=== PATIENT | male | born 1960 | race Caucasian/White ===

== ENCOUNTER 2017-11-15 11:53 | Day surgery (SDC) | payer BC ==
[~2017-11-15 11:53] MED LIST: Propofol 200 MG/20 ML SDV ONE
[2017-11-15] MEDS ORDERED: Lactated Ringers 1,000 ML IV SCH (12:30)
[2017-11-15] MEDS ORDERED: Sodium Chloride 0.9% 5 ML Syringe FLUSH PRN (12:30)
[2017-11-15] MEDS ORDERED: Propofol 200 MG/20 ML SDV IV ONE (12:42)
--- NOTE | 2017-11-15 12:44 | PCM.PN ---
- General Info Date of Service: 11/15/17 - Review of Systems Systems Review Comment:: 57-year-old male with a family history of colon cancer in his mother comes for colonoscopy. His last colon exam was 5 years ago. He denies any recent change in bowel habits or rectal bleeding. He is medically stable to proceed today with no recent significant change in his health status. I have discussed the proposed colonoscopy with the patient. Risks such as but not limited to bleeding and GI injury reviewed. He appears to understand and agrees to proceed. - Patient Data Vitals - Most Recent: Last Vital Signs Temp 97.8 F 11/15/17 12:03 Pulse 66 11/15/17 12:03 Resp 18 11/15/17 12:03 BP 139/87 11/15/17 12:03 Pulse Ox 96 11/15/17 12:03 Weight - Most Recent: 92.986 kg Med Orders - Current: Current Medications Lactated Ringer's (Ringers, Lactated) 1,000 mls @ 50 mls/hr IV ASDIRECTED [facility] Last Admin: 11/15/17 12:35 Dose: 50 mls/hr Sodium Chloride (Syrex Flush) 5 ml FLUSH Q8HR PRN PRN Reason: Keep Vein Open Discontinued Medications Propofol (Diprivan 20 Ml) Confirm Administered Dose 400 mg .ROUTE .STK-MED ONE Stop: 11/15/17 11:40 - Problem List Review Problem List Initiated/Reviewed/Updated: Yes - My Orders Last 24 Hours: My Active Orders 11/15/17 07:20 Resuscitation Status Routine 11/15/17 12:30 Peripheral IV Care [RC] . DIRECTED Lactated Ringers [Ringers, Lactated] 1,000 ml IV ASDIRECTED Sodium Chloride 0.9% [Syrex Flush] 5 ml FLUSH Q8HR PRN Peripheral IV Insertion Adult [OM.PC] Routine 11/15/17 13:00 Patient to Empty Bladder [RC] ASDIRECTED 11/15/17 13:25 Verify Patient Consent Obtain [RC] ASDIRECTED 11/15/17 Breakfast Nothing Per Oral Diet [DIET] - Assessment Assessment:: Family history of colon cancer - Plan Plan:: Colonoscopy
--- NOTE | 2017-11-15 13:27 | PCM.OPNOTE ---
- General Post-Op/Procedure Note Date of Surgery/Procedure: 11/15/17 Operative Procedure(s): Colonoscopy with Polypectomy Findings: Small cecal polyp Mild sigmoid diverticulosis Pre Op Diagnosis: Family history of colon cancer Post-Op Diagnosis: Colon polyp. Diverticulosis Anesthesia Technique: MAC Primary Surgeon: Ke Loyd Pathology: Cecal polyp Output, Urine Amount: 0 EBL in mLs: 0 Complications: None Condition: Good
--- NOTE | 2017-11-16 01:26 | OR ---
DATE OF SURGERY: 11/15/2017 SURGEON: Ke Loyd MD PREOPERATIVE DIAGNOSIS: Family history of colon cancer. POSTOPERATIVE DIAGNOSIS: Colon polyp and diverticulosis. OPERATION PERFORMED: Colonoscopy with polypectomy. INDICATIONS FOR SURGERY: This 57-year-old male comes for a colonoscopy. His last colon exam was five years ago. He does have a family history of colon cancer in his mother. FINDINGS: A single polyp is noted in the cecum. It is sessile in configuration and 6 mm in size. There is a mild degree of diverticulosis in the sigmoid colon, which does not appear to be acutely inflamed or otherwise complicated. PROCEDURE: The patient was taken to the operating room. He was given intravenous sedation, and with him in the left lateral decubitus position, digital rectal exam was performed showing no rectal masses. The Olympus colonoscope was inserted into the rectum. Retroflexed examination of the rectal canal was performed. The scope was then carefully advanced under direct visualization through the entire length of the colon until cecum was reached. Cecal acquisition was confirmed by noting the normal internal cecal anatomy including the appendiceal orifice and ileocecal valve. In the cecum, the above- described polyp was identified. It was removed with a cautery snare and retrieved into a polyp trap. After carefully examining the cecum, the scope was slowly withdrawn sequentially re-examining the colonic segments until the entire colon and rectum had been fully examined. The scope was then removed and the patient was taken from the operating room in satisfactory condition. ESTIMATED BLOOD LOSS: Zero. COMPLICATIONS: None. PROGNOSIS: Good. /[id number]/MODL
== END 2017-11-15 14:15 | disposition home or self-care (01) ==
LOC: KA.SDS 11:53
PROVIDERS: ATTEND Surgery
DX: Z12.11 Encounter for screening for malignant neoplasm of colon (principal); D12.0 Benign neoplasm of cecum; K57.30 Diverticulosis of large intestine without perforation or abscess without bleeding; Z80.0 Family history of malignant neoplasm of digestive organs; I10 Essential (primary) hypertension; F32.9 Major depressive disorder, single episode, unspecified; F41.9 Anxiety disorder, unspecified; Z79.899 Other long term (current) drug therapy
CPT/HCPCS: 45385; J2704; J7120